=== PATIENT | male | born 1960 | race Caucasian/White ===

== ENCOUNTER 2023-11-12 09:48 | Emergency (ER) | payer OTHER ==
[2023-11-12 09:57] VITALS: BP 134/76; PULSE 65; RESP 18; TEMP 97.6; BMI 27.6
[2023-11-12 10:50] LABS: URINE APPEARANCE CLEAR; URINE BILIRUBIN NEGATIVE (NEGATIVE); URINE COLOR YELLOW; URINE GLUCOSE (UA) NEGATIVE (NEGATIVE); URINE KETONE NEGATIVE (NEGATIVE); URINE LEUK ESTERASE NEGATIVE (NEGATIVE); URINE NITRITE NEGATIVE (NEGATIVE); URINE PROTEIN NEGATIVE (NEGATIVE); URINE UROBILINOGEN 0.2 mg/dL (0.2-1.0)
[2023-11-12] MEDS ORDERED: LIDOCAINE 4% PATCH TP ONE (11:24)
[2023-11-12] MEDS ORDERED: ACETAMINOPHEN 500 MG TABLET (FP) ONE ×2 (11:24→11:25)
[2023-11-12] MEDS ORDERED: KETOROLAC TROMETHAMINE 15 MG/ML VIAL ONE (11:24)
[2023-11-12] MEDS: ACETAMINOPHEN 500 MG TABLET (FP) PO ONE (11:34)
[2023-11-12] MEDS: LIDOCAINE 5% TOPICAL PATCH TP ONE (11:34)
[2023-11-12] MEDS: KETOROLAC TROMETHAMINE 15 MG/ML VIAL IM ONE (11:34)
[2023-11-12] MEDS ORDERED: LIDOCAINE PATCH REMOVAL MC SCH (22:00)
== END 2023-11-12 12:40 | disposition home or self-care (01) ==
LOC: JERFT 09:48
PROC: 3E0133Z Introduction of Anti-inflammatory into Subcutaneous Tissue, Percutaneous Approach (ICD-10-PCS; principal; 2023-11-12)
DX: M19.90 Unspecified osteoarthritis, unspecified site (principal); M47.816 Spondylosis without myelopathy or radiculopathy, lumbar region; M54.50 Low back pain, unspecified; Y99.0 Civilian activity done for income or pay
CPT/HCPCS: 72100-TC-FY; 81003; 87086; 99284-25